=== PATIENT | male | born 1930 | race American Indian/Alaskan Native ===

== ENCOUNTER 2018-08-16 18:09 | Observation (INO) | payer MEDICARE ==
[2018-08-16 18:10] VITALS: BMI 25.7
[2018-08-16] MEDS ORDERED: Sodium Chloride 0.9% 500 ML IV STA (19:09)
--- NOTE | 2018-08-16 19:57 | ED PDOC ---
Arrival/HPI - General Chief Complaint: ENT Problem Time Seen by Provider: 08/16/18 18:38 Historian: Patient - History of Present Illness Narrative History of Present Illness (Text): 08/16/18 19:57 A 88 year old male presents to the emergency department complaining of sore throat, cough, and fever since yesterday. Patient denies any diarrhea, chest pain, shortness of breath, or any other complaints at this time. Past Medical History - Provider Review Nursing Documentation Reviewed: Yes - Infectious Disease Hx of Infectious Diseases: None - Cardiac Hx Hypertension: Yes - Pulmonary Hx Respiratory Disorders: No - Neurological Hx Neurological Disorder: No - HEENT Hx HEENT Disorder: No - Renal Hx Renal Disorder: No - Endocrine/Metabolic Hx Endocrine Disorders: No - Hematological/Oncological Hx Blood Disorders: No - Integumentary Hx Dermatological Disorder: No - Musculoskeletal/Rheumatological Hx Arthritis: Yes - Gastrointestinal Hx Gastrointestinal Disorders: No - Genitourinary/Gynecological Hx Genitourinary Disorders: No - Psychiatric Hx Psychophysiologic Disorder: No Hx Substance Use: No - Anesthesia Hx Anesthesia: No Family/Social History - Physician Review Nursing Documentation Reviewed: Yes Family/Social History: No Known Family HX Smoking Status: Never Smoked Hx Alcohol Use: No Hx Substance Use: No Allergies/Home Meds Allergies/Adverse Reactions: Allergies No Known Allergies Allergy (Verified 07/04/15 01:42) Home Medications: Home Meds Medication Instructions Recorded Confirmed Lisinopril [Zestril] 10 mg PO DAILY 07/04/15 07/04/15 Simvastatin 20 mg PO DAILY 07/04/15 07/04/15 Review of Systems - Physician Review All systems were reviewed & negative as marked: Yes - Review of Systems Constitutional: Fevers ENT: Sore Throat Respiratory: Cough. absent: SOB Cardiovascular: absent: Chest Pain Gastrointestinal: absent: Abdominal Pain, Diarrhea, Vomiting Musculoskeletal: absent: Arthralgias, Back Pain, Neck Pain Skin: absent: Rash, Skin Lesions Neurological: absent: Headache, Dizziness Physical Exam Vital Signs Temp Pulse Resp BP Pulse Ox 08/16/18 18:10 100.9 F H 75 18 132/64 97 Temperature: Afebrile Blood Pressure: Normal Pulse: Regular Respiratory Rate: Normal Appearance: Positive for: Well-Appearing, Non-Toxic, Comfortable Pain Distress: None Mental Status: Positive for: Alert and Oriented X 3 - Systems Exam Head: Present: Atraumatic, Normocephalic Pupils: Present: PERRL Extroacular Muscles: Present: EOMI Conjunctiva: Present: Normal Mouth: Present: Dry Neck: Present: Normal Range of Motion. No: Meningeal Signs, Lymphadenopathy Respiratory/Chest: Present: Clear to Auscultation, Good Air Exchange. No: Respiratory Distress, Accessory Muscle Use Cardiovascular: Present: Regular Rate and Rhythm, Normal S1, S2. No: Murmurs Abdomen: No: Tenderness, Distention, Peritoneal Signs Back: Present: Normal Inspection Upper Extremity: Present: Normal Inspection. No: Cyanosis, Edema Lower Extremity: Present: Normal Inspection. No: Edema Neurological: Present: GCS=15, CN II-XII Intact, Speech Normal Skin: Present: Warm, Dry, Normal Color. No: Rashes Psychiatric: Present: Alert, Oriented x 3, Normal Insight, Normal Concentration Medical Decision Making ED Course and Treatment: Plan : - IV - Labs - Rapid flu - EKG - CXR - Reassess / disposition EKG: SR w/ PVCs at 77 bpm, +new LBBB, compared to last EKG on 07/04/15 which showed LVH with widening of QRS, as read by LILLIAN. CXR : NAD, as read by LILLIAN Labs reviewed : trop (-), rapid flu (-). On reevaluation, patient remains awake alert and oriented 3 in no acute distress, breathing easy and unlabored, he has no new complaints at this time, denies CP or SOB. Diagnostic results d/w the patient and his daughter. Patient states that he feels well and would prefer to go home. Advised that he has new EKG changes and should stay overnight for observation, which he is agrees to. Case d/w Dr. Dover and the medical record librarian, agrees with plan for observation stay. - RAD Interpretation Radiology Orders: 08/16/18 19:08 CHEST PORTABLE [RAD] Stat - Medication Orders Current Medication Orders: Sodium Chloride (Sodium Chloride 0.9%) 500 mls @ 500 mls/hr IV .Q1H STA Stop: 08/16/18 20:08 Last Admin: 08/16/18 19:49 Dose: 500 mls/hr eMAR Start Stop Document 08/16/18 19:49 RC ([facility] 08[facility]16/18 19:50 [id number] Intravenous Solution Start Date 08/16/18 Start Time 19:50 End Date 08/16/18 End time 20:50 Total Infusion Time 60 - PA / SALES SERVICE TECHNICIAN / Resident Statement MD/DO has reviewed & agrees with the documentation as recorded. - Scribe Statement The provider has reviewed the documentation as recorded by the Ashtyn Ferreira Provider Scribe Attestation: All medical record entries made by the Scribe were at my direction and personally dictated by me. I have reviewed the chart and agree that the record accurately reflects my personal performance of the history, physical exam, medical decision making, and the department course for this patient. I have also personally directed, reviewed, and agree with the discharge instructions and disposition. Disposition/Present on Arrival - Present on Arrival Any Indicators Present on Arrival: No History of DVT/PE: No History of Uncontrolled Diabetes: No Urinary Catheter: No History of Decub. Ulcer: No History Surgical Site Infection Following: None - Disposition Have Diagnosis and Disposition been Completed?: Yes Diagnosis: EKG abnormality, Fever Disposition: HOSPITALIZED Disposition Time: 22:00 Patient Plan: Observation (to remote tele) Condition: STABLE
[2018-08-16 19:58] LABS: BASO # 0.01 K/mm3 (0.0-2.0); BASO % 0.1 % (0.0-3.0); EOS % 0.3 % (1.5-5.0); HEMOGLOBIN 11.1 g/dL (14.0-18.0); LYMPH # 1.4 (1.2-3.4); LYMPH % 13.2 % (22.0-35.0); MEAN CELL VOLUME 83.3 fl (80.0-105.0); MEAN CORPUSCULAR HEMOGLOBIN 27.3 pg (25.0-35.0); MEAN CORPUSCULAR HGB CONC 32.8 g/dl (31.0-37.0); MONO # 1.1 (0.1-0.6); MONO % 10.5 % (1.0-6.0); RBC 4.06 10^6/uL (3.5-6.1); RED CELL DISTRIBUTION WIDTH 15.1 % (11.5-14.5); WHITE BLOOD COUNT 10.3 10^3/uL (4.5-11.0)
[2018-08-16 21:26] LABS: ALB/GLOB RATIO 1.3 (1.1-1.8); ALBUMIN 4.2 g/dL (3.0-4.8); ALT/SGPT 10 U/L (7-56); AST/SGOT 18 U/L (17-59); BLOOD UREA NITROGEN 23 mg/dL (7-21); CALCIUM 9.5 mg/dL (8.4-10.5); GFR NON-AFRICAN AMERICAN 48
[2018-08-16 21:36] LABS: TROPONIN I < 0.01 ng/mL
--- NOTE | 2018-08-16 22:54 | CP.PCM.HP ---
<Kendell Tipton - Last Filed: 08/17/18 05:37> History of Present Illness - History of Present Illness History of Present Illness: PGY1 Medicine History and Physical Exam Note for Dr. Dover An 88-year-old M with PMH of HTN, HLD, and arthritis presents to [facility] complaining of sore throat, cough, and fever x2 days. ROS is unremarkable for diarrhea, chest pain, shortness of breath. Patient is a poor historian, thus a complete history could not be obtained at the time of evaluation. PMH: HTN, HLD, arthritis PSH: denies Allergies: NKDA Medications: zestril 10mg po daily, naproxen 500mg po bid, simvastatin 20mg po daily, Family Hx: Unknown Social Hx: Denies tobacco, denies ETOH, denies substance abuse PMD: Dr. Reich Present on Admission - Present on Admission Any Indicators Present on Admission: No History of DVT/PE: No History of Uncontrolled Diabetes: No Urinary Catheter: No Decubitus Ulcer Present: No Review of Systems - Review of Systems Systems not reviewed;Unavailable: Other (Complete ROS could not be obtained due to poor historian ) Past Patient History - Infectious Disease Hx of Infectious Diseases: None - Past Social History Smoking Status: Never Smoked - CARDIAC Hx Hypertension: Yes - PULMONARY Hx Respiratory Disorders: No - NEUROLOGICAL Hx Neurological Disorder: No - HEENT Hx HEENT Problems: No - RENAL Hx Chronic Kidney Disease: No - ENDOCRINE/METABOLIC Hx Endocrine Disorders: No - HEMATOLOGICAL/ONCOLOGICAL Hx Blood Disorders: No - INTEGUMENTARY Hx Dermatological Problems: No - MUSCULOSKELETAL/RHEUMATOLOGICAL Hx Arthritis: Yes - GASTROINTESTINAL Hx Gastrointestinal Disorders: No - GENITOURINARY/GYNECOLOGICAL Hx Genitourinary Disorders: No - PSYCHIATRIC Hx Psychophysiologic Disorder: No Hx Substance Use: No - SURGICAL HISTORY Hx Surgeries: No - ANESTHESIA Hx Anesthesia: No Meds Allergies/Adverse Reactions: Allergies Allergy/AdvReac Type Severity Reaction Status Date / Time No Known Allergies Allergy Verified 07/04/15 01:42 Physical Exam - Constitutional Appears: Non-toxic, No Acute Distress - Head Exam Head Exam: ATRAUMATIC, NORMAL INSPECTION, NORMOCEPHALIC - Eye Exam Eye Exam: EOMI, Normal appearance. absent: Nystagmus Pupil Exam: NORMAL ACCOMODATION - ENT Exam ENT Exam: Mucous Membranes Dry - Neck Exam Neck exam: Positive for: Normal Inspection. Negative for: Tenderness, Thyromegaly - Respiratory Exam Respiratory Exam: Clear to Auscultation Bilateral, NORMAL BREATHING PATTERN. absent: Chest Wall Tenderness, Decreased Breath Sounds, Prolonged Expiratory Phase, Rales, Rhonchi, Wheezes, Respiratory Distress, Stridor - Cardiovascular Exam Cardiovascular Exam: +S1, +S2. absent: Bradycardia, Tachycardia Additional comments: LBBB - GI/Abdominal Exam GI & Abdominal Exam: Normal Bowel Sounds, Soft. absent: Diminished Bowel Sounds, Distended, Firm, Guarding, Hyperactive Bowel Sounds, Mass, Tenderness - Extremities Exam Extremities exam: Positive for: full ROM, normal capillary refill, normal inspection, pedal pulses present. Negative for: calf tenderness, pedal edema, tenderness - Back Exam Back exam: FULL ROM, NORMAL INSPECTION. absent: CVA tenderness (L), CVA tenderness (R) - Neurological Exam Neurological exam: Alert, CN II-XII Intact Additional comments: Patient oriented to self, place, but not to year (answered 1920) - Psychiatric Exam Psychiatric exam: Normal Affect, Normal Mood - Skin Skin Exam: Dry, Intact, Normal Color, Warm Results - Vital Signs Recent Vital Signs: Last Vital Signs Temp 99.4 F 08/16/18 22:17 Pulse 59 L 08/16/18 22:17 Resp 16 08/16/18 22:17 BP 115/58 L 08/16/18 22:17 Pulse Ox 97 08/16/18 22:17 - Labs Result Diagrams: 08/16/18 19:39 08/16/18 19:39 Labs: Laboratory Results - last 24 hr 08/16/18 08/16/18 08/16/18 19:39 19:39 19:39 WBC 10.3 RBC 4.06 Hgb 11.1 L Hct 33.8 L MCV 83.3 MCH 27.3 MCHC 32.8 RDW 15.1 H Plt Count 191 MPV 9.0 Neut % (Auto) 75.9 H Lymph % (Auto) 13.2 L [place] % (Auto) 10.5 H Eos % (Auto) 0.3 L Baso % (Auto) 0.1 Lymph # (Auto) 1.4 [place] # (Auto) 1.1 H Eos # (Auto) 0.0 Baso # (Auto) 0.01 Absolute Neuts (auto) 7.85 H Sodium 138 Potassium 5.0 Chloride 103 Carbon Dioxide 27 Anion Gap 12 BUN 23 H Creatinine 1.4 Est GFR ( Amer) 58 Est GFR (Non-Af Amer) 48 Random Glucose 102 Calcium 9.5 Magnesium 2.3 H Total Bilirubin 0.6 AST 18 ALT 10 Alkaline Phosphatase 54 Lactate Dehydrogenase 411 Total Creatine Kinase 58 Troponin I < 0.01 Total Protein 7.3 Albumin 4.2 Globulin 3.1 Albumin/Globulin Ratio 1.3 Influenza Typ A,B (EIA) Negative for flu a/b Assessment & Plan - Assessment and Plan (Free Text) Assessment: An 88-year-old M with PMH of HTN, HLD, and arthritis presents to [facility] complaining of sore throat, cough, and fever x2 days. ROS is unremarkable for diarrhea, chest pain, shortness of breath. Patient is a poor historian, thus a complete history could not be obtained. Cough, Sore Throat, Fever likely secondary to URI likely viral in etiology - Patient with fever 100.9 - No leukocytosis - F/U Urinalysis - F/U Urine culture - F/U Blood cultures - F/U Sputum cultures - IVF - No antibiotics at this time - CXR: unremarkable for acute disease Abnormal EKG, LBBB - Patient is asymptomatic and not complaining of chest pain - Physical exam is unremarkable - F/U Troponin Q6H x2 - F/U TSH - F/U EKG - Monitor in remote tele Dehydration - CMP consistent with dehydration - BUN=23 - Monitor daily CMP - IVF NS @75cc/hr Ppx: - DVT: ScDs - GI: not indicated Discussed with Dr. Stanislaw Tipton PGY1 <Sam Dover - Last Filed: 08/17/18 06:43> Results - Vital Signs Recent Vital Signs: Last Vital Signs Temp 99.4 F 08/16/18 22:17 Pulse 57 L 08/17/18 05:03 Resp 18 08/17/18 00:10 BP 115/58 L 08/16/18 22:17 Pulse Ox 97 08/16/18 22:17 - Labs Result Diagrams: 08/16/18 19:39 08/16/18 19:39 Labs: Laboratory Results - last 24 hr 08/16/18 08/16/18 08/16/18 19:39 19:39 19:39 WBC 10.3 RBC 4.06 Hgb 11.1 L Hct 33.8 L MCV 83.3 MCH 27.3 MCHC 32.8 RDW 15.1 H Plt Count 191 MPV 9.0 Neut % (Auto) 75.9 H Lymph % (Auto) 13.2 L [place] % (Auto) 10.5 H Eos % (Auto) 0.3 L Baso % (Auto) 0.1 Lymph # (Auto) 1.4 [place] # (Auto) 1.1 H Eos # (Auto) 0.0 Baso # (Auto) 0.01 Absolute Neuts (auto) 7.85 H Sodium 138 Potassium 5.0 Chloride 103 Carbon Dioxide 27 Anion Gap 12 BUN 23 H Creatinine 1.4 Est GFR ( Amer) 58 Est GFR (Non-Af Amer) 48 Random Glucose 102 Calcium 9.5 Magnesium 2.3 H Total Bilirubin 0.6 AST 18 ALT 10 Alkaline Phosphatase 54 Lactate Dehydrogenase 411 Total Creatine Kinase 58 Troponin I < 0.01 Total Protein 7.3 Albumin 4.2 Globulin 3.1 Albumin/Globulin Ratio 1.3 Influenza Typ A,B (EIA) Negative for flu a/b 08/17/18 01:00 WBC RBC Hgb Hct MCV MCH MCHC RDW Plt Count MPV Neut % (Auto) Lymph % (Auto) [place] % (Auto) Eos % (Auto) Baso % (Auto) Lymph # (Auto) [place] # (Auto) Eos # (Auto) Baso # (Auto) Absolute Neuts (auto) Sodium Potassium Chloride Carbon Dioxide Anion Gap BUN Creatinine Est GFR ( Amer) Est GFR (Non-Af Amer) Random Glucose Calcium Magnesium Total Bilirubin AST ALT Alkaline Phosphatase Lactate Dehydrogenase Total Creatine Kinase Troponin I < 0.01 Total Protein Albumin Globulin Albumin/Globulin Ratio Influenza Typ A,B (EIA) Attending/Attestation - Attestation I have personally seen and examined this patient.: Yes I have fully participated in the care of the patient.: Yes I have reviewed all pertinent clinical information: Yes Notes (Text): 08/17/18 06:43 seen and examined. Discussed with resident. A&P as above.
[2018-08-17] MEDS ORDERED: guaiFENesin DM 100 mg-10 mg/5 ml UD PO PRN (00:10)
[2018-08-17] MEDS ORDERED: Sodium Chloride 0.9% 1,000 ML IV SCH (00:15)
[2018-08-17 06:48] VITALS: RESP 20
[2018-08-17] MEDS ORDERED: Arformoterol 15 mcg/2 ml Inh Sol IH SCH ×2 (08:00)
[2018-08-17] MEDS ORDERED: Budesonide 0.5 mg/2 ml Inhal Susp UD IH SCH (08:00)
[2018-08-17 08:05] LABS: BASO # 0.02 K/mm3 (0.0-2.0); BASO % 0.2 % (0.0-3.0); EOS # 0.1 (0.0-0.7); EOS % 1.6 % (1.5-5.0); HEMOGLOBIN 10.3 g/dL (14.0-18.0); LYMPH # 2.4 (1.2-3.4); LYMPH % 29.7 % (22.0-35.0); MEAN CORPUSCULAR HEMOGLOBIN 26.6 pg (25.0-35.0); MEAN CORPUSCULAR HGB CONC 31.7 g/dl (31.0-37.0); MEAN PLATELET VOLUME 9.1 fl (7.0-11.0); MONO # 0.9 (0.1-0.6); MONO % 10.7 % (1.0-6.0); RBC 3.87 10^6/uL (3.5-6.1); RED CELL DISTRIBUTION WIDTH 15.4 % (11.5-14.5); WHITE BLOOD COUNT 8.1 10^3/uL (4.5-11.0)
[2018-08-17 08:12] LABS: INR 1.19; PARTIAL THROMBOPLASTIN TIME 38.7 Seconds (26.9-38.3); PROTHROMBIN TIME 13.5 SECONDS (9.4-12.5)
[2018-08-17 08:19] LABS: ALB/GLOB RATIO 1.2 (1.1-1.8); ALT/SGPT 11 U/L (7-56); AST/SGOT 16 U/L (17-59); BLOOD UREA NITROGEN 20 mg/dL (7-21); CALCIUM 9.1 mg/dL (8.4-10.5); GFR NON-AFRICAN AMERICAN > 60
[2018-08-17 08:41] VITALS: BP 120/56; TEMP 98.6; O2SAT 100
--- NOTE | 2018-08-17 09:08 | RAD ---
Date of service: 08/16/2018 HISTORY: fever COMPARISON: No prior. FINDINGS: LUNGS: No acute pulmonary disease. Volume loss at the left chest is appreciate with elevated left hemidiaphragm. PLEURA: Fibrosis versus small pleural effusion blunts the left costophrenic sulcus. No right pleural effusion. No pneumothorax bilaterally. CARDIOVASCULAR: No aortic atherosclerotic calcification present. Normal cardiac size. No pulmonary vascular congestion. OSSEOUS STRUCTURES: No significant abnormalities. VISUALIZED UPPER ABDOMEN: Elevated left hemidiaphragm. OTHER FINDINGS: None. IMPRESSION: No acute infiltrate bilaterally. Fibrosis versus small pleural effusion blunts the left costophrenic sulcus with the former favored given lack of blunting of the medial costophrenic sulcus. Left hemidiaphragm elevation is appreciate with limited left volume loss as well.
--- NOTE | 2018-08-17 11:29 | CP.PCM.DIS ---
<Kalia Henry - Last Filed: 08/17/18 13:05> Provider - Provider Date of Admission: 08/16/18 22:03 Attending physician: Naye Mays MD Primary care physician: Efren Reich Consults: 08/17/18 00:14 Physician Consult Routine Comment: Consulting Provider: Matt Mckinnon Consulting Physician: Matt Mckinnon Reason for Consult: New LBBB Time Spent in preparation of Discharge (in minutes): 45 Diagnosis - Discharge Diagnosis (1) Viral URI with cough Status: Acute (2) HTN (hypertension) Status: Chronic (3) Hyperlipidemia Status: Chronic (4) Arthritis Status: Chronic (5) EKG abnormality Status: Chronic (6) Fever Status: Resolved Hospital Course - Lab Results Lab Results: Most Recent Lab Values WBC 8.1 10^3/uL (4.5-11.0) D 08/17/18 07:00 RBC 3.87 10^6/uL (3.5-6.1) 08/17/18 07:00 Hgb 10.3 g/dL (14.0-18.0) L 08/17/18 07:00 Hct 32.5 % (42.0-52.0) L 08/17/18 07:00 MCV 84.0 fl (80.0-105.0) 08/17/18 07:00 MCH 26.6 pg (25.0-35.0) 08/17/18 07:00 MCHC 31.7 g/dl (31.0-37.0) 08/17/18 07:00 RDW 15.4 % (11.5-14.5) H 08/17/18 07:00 Plt Count 193 10^3/uL (120.0-450.0) 08/17/18 07:00 MPV 9.1 fl (7.0-11.0) 08/17/18 07:00 Neut % (Auto) 57.8 % (50.0-68.0) 08/17/18 07:00 Lymph % (Auto) 29.7 % (22.0-35.0) 08/17/18 07:00 [place] % (Auto) 10.7 % (1.0-6.0) H 08/17/18 07:00 Eos % (Auto) 1.6 % (1.5-5.0) 08/17/18 07:00 Baso % (Auto) 0.2 % (0.0-3.0) 08/17/18 07:00 Lymph # (Auto) 2.4 (1.2-3.4) 08/17/18 07:00 [place] # (Auto) 0.9 (0.1-0.6) H 08/17/18 07:00 Eos # (Auto) 0.1 (0.0-0.7) 08/17/18 07:00 Baso # (Auto) 0.02 K/mm3 (0.0-2.0) 08/17/18 07:00 Absolute Neuts (auto) 4.69 (1.4-6.5) 08/17/18 07:00 PT 13.5 SECONDS (9.4-12.5) H 08/17/18 07:00 INR 1.19 08/17/18 07:00 APTT 38.7 Seconds (26.9-38.3) H 08/17/18 07:00 Sodium 141 mmol/L (132-148) 08/17/18 07:00 Potassium 4.5 mmol/L (3.6-5.0) 08/17/18 07:00 Chloride 107 mmol/L (98-107) 08/17/18 07:00 Carbon Dioxide 29 mmol/L (21-33) 08/17/18 07:00 Anion Gap 10 (10-20) 08/17/18 07:00 BUN 20 mg/dL (7-21) 08/17/18 07:00 Creatinine 1.1 mg/dl (0.8-1.5) 08/17/18 07:00 Est GFR ( Amer) > 60 08/17/18 07:00 Est GFR (Non-Af Amer) > 60 08/17/18 07:00 Random Glucose 89 mg/dL (70-110) 08/17/18 07:00 Calcium 9.1 mg/dL (8.4-10.5) 08/17/18 07:00 Magnesium 2.3 mg/dL (1.7-2.2) H 08/16/18 19:39 Total Bilirubin 0.5 mg/dL (0.2-1.3) 08/17/18 07:00 AST 16 U/L (17-59) L 08/17/18 07:00 ALT 11 U/L (7-56) 08/17/18 07:00 Alkaline Phosphatase 55 U/L (38-126) 08/17/18 07:00 Lactate Dehydrogenase 411 U/L (333-699) 08/16/18 19:39 Total Creatine Kinase 58 U/L (35-230) 08/16/18 19:39 Troponin I < 0.01 ng/mL 08/17/18 07:00 Total Protein 7.2 g/dL (5.8-8.3) 08/17/18 07:00 Albumin 4.0 g/dL (3.0-4.8) 08/17/18 07:00 Globulin 3.2 gm/dL 08/17/18 07:00 Albumin/Globulin Ratio 1.2 (1.1-1.8) 08/17/18 07:00 Influenza Typ A,B (EIA) Negative for flu a/b (NEGATIVE) 08/16/18 19:39 - Hospital Course Hospital Course: Patient is an 88-year-old male with PMH of HTN, HLD, and arthritis presenting with a cough and dry throat for the past week. He states that he has been coughing intermittently for the past week. He describes his cough to be non- productive most of the time and sometimes producing a clear mucus. Patient got a flu shot last year. He denies smoking. He denies shortness of breath, fevers, chills, or chest pain. In the course of his hospital stay he had an episode of low grade fever. CXR was negative. He is negative for influenza. Antibiotics not indicated at this time as patient most likely has a mild viral URI. EKG showed LBBB, however patient is asymptomatic. Cardiology, Dr. Mckinnon was consulted and recommends that patient follow up with him as outpatient for an echo and stress test. Patient was instructed to take OTC robitussin and cepacol, instructed to follow up with his PMD within 1 week of discharge, follow up with yarn examiner skeins in 1 week for stress test and echo, and was instructed to return to the emergency room for worsening or newly concerning symptoms. Patient is medically stable for discharge. Discharge Exam - Additional Findings Additional findings: - Constitutional Appears: Non-toxic, No Acute Distress - Head Exam Head Exam: ATRAUMATIC, NORMAL INSPECTION, NORMOCEPHALIC - Eye Exam Eye Exam: EOMI, Normal appearance. absent: Nystagmus Pupil Exam: NORMAL ACCOMODATION - ENT Exam ENT Exam: Mucous Membranes Dry - Neck Exam Neck exam: Positive for: Normal Inspection. Negative for: Tenderness, Thyromegaly - Respiratory Exam Respiratory Exam: Clear to Auscultation Bilateral, NORMAL BREATHING PATTERN. absent: Chest Wall Tenderness, Decreased Breath Sounds, Prolonged Expiratory Phase, Rales, Rhonchi, Wheezes, Respiratory Distress, Stridor - Cardiovascular Exam Cardiovascular Exam: +S1, +S2. absent: Bradycardia, Tachycardia Additional comments: LBBB - GI/Abdominal Exam GI & Abdominal Exam: Normal Bowel Sounds, Soft. absent: Diminished Bowel Sounds, Distended, Firm, Guarding, Hyperactive Bowel Sounds, Mass, Tenderness - Extremities Exam Extremities exam: Positive for: full ROM, normal capillary refill, normal inspection, pedal pulses present. Negative for: calf tenderness, pedal edema, tenderness - Back Exam Back exam: FULL ROM, NORMAL INSPECTION. absent: CVA tenderness (L), CVA tenderness (R) - Neurological Exam Neurological exam: Alert, CN II-XII Intact - Psychiatric Exam Psychiatric exam: Normal Affect, Normal Mood - Skin Skin Exam: Dry, Intact, Normal Color, Warm Discharge Plan - Follow Up Plan Condition: STABLE Disposition: HOME/ ROUTINE Instructions: Ambulatory Cardiac Monitoring (DC), Fever, Adult (DC), When to Worry About a Fever, Hypertension (DC) Additional Instructions: 1. Take [id number]-abs-hyoahky Robitussin for cough and Cepacol lozenges for sore/dry throat. Please follow dose instructions on the box. 2. Follow up with your primary care doctor within 1 week of discharge. Discuss with your doctor if your cough persists. It may be caused from side effects of your medication (Lisinopril). 3. Follow up with the yarn examiner skeins, Dr. Mckinnon in his office in 1 week for an echocardiogram and stress test. 4. Return to the emergency room for worsening or newly concerning symptoms. Referrals: Efren Reich MD [Primary Care Provider] - Matt Mckinnon MD [Staff Provider] - <Matt Johnson - Last Filed: 08/17/18 13:18> Provider - Provider Date of Admission: 08/16/18 22:03 Attending physician: Naye Mays MD Primary care physician: Efren Reich Consults: 08/17/18 00:14 Physician Consult Routine Comment: Consulting Provider: Matt Mckinnon Consulting Physician: Matt Mckinnon Reason for Consult: [place] [facility] Course - Lab Results Lab Results: Most Recent Lab Values WBC 8.1 10^3/uL (4.5-11.0) D 08/17/18 07:00 RBC 3.87 10^6/uL (3.5-6.1) 08/17/18 07:00 Hgb 10.3 g/dL (14.0-18.0) L 08/17/18 07:00 Hct 32.5 % (42.0-52.0) L 08/17/18 07:00 MCV 84.0 fl (80.0-105.0) 08/17/18 07:00 MCH 26.6 pg (25.0-35.0) 08/17/18 07:00 MCHC 31.7 g/dl (31.0-37.0) 08/17/18 07:00 RDW 15.4 % (11.5-14.5) H 08/17/18 07:00 Plt Count 193 10^3/uL (120.0-450.0) 08/17/18 07:00 MPV 9.1 fl (7.0-11.0) 08/17/18 07:00 Neut % (Auto) 57.8 % (50.0-68.0) 08/17/18 07:00 Lymph % (Auto) 29.7 % (22.0-35.0) 08/17/18 07:00 [place] % (Auto) 10.7 % (1.0-6.0) H 08/17/18 07:00 Eos % (Auto) 1.6 % (1.5-5.0) 08/17/18 07:00 Baso % (Auto) 0.2 % (0.0-3.0) 08/17/18 07:00 Lymph # (Auto) 2.4 (1.2-3.4) 08/17/18 07:00 [place] # (Auto) 0.9 (0.1-0.6) H 08/17/18 07:00 Eos # (Auto) 0.1 (0.0-0.7) 08/17/18 07:00 Baso # (Auto) 0.02 K/mm3 (0.0-2.0) 08/17/18 07:00 Absolute Neuts (auto) 4.69 (1.4-6.5) 08/17/18 07:00 PT 13.5 SECONDS (9.4-12.5) H 08/17/18 07:00 INR 1.19 08/17/18 07:00 APTT 38.7 Seconds (26.9-38.3) H 08/17/18 07:00 Sodium 141 mmol/L (132-148) 08/17/18 07:00 Potassium 4.5 mmol/L (3.6-5.0) 08/17/18 07:00 Chloride 107 mmol/L (98-107) 08/17/18 07:00 Carbon Dioxide 29 mmol/L (21-33) 08/17/18 07:00 Anion Gap 10 (10-20) 08/17/18 07:00 BUN 20 mg/dL (7-21) 08/17/18 07:00 Creatinine 1.1 mg/dl (0.8-1.5) 08/17/18 07:00 Est GFR ( Amer) > 60 08/17/18 07:00 Est GFR (Non-Af Amer) > 60 08/17/18 07:00 Random Glucose 89 mg/dL (70-110) 08/17/18 07:00 Calcium 9.1 mg/dL (8.4-10.5) 08/17/18 07:00 Magnesium 2.3 mg/dL (1.7-2.2) H 08/16/18 19:39 Total Bilirubin 0.5 mg/dL (0.2-1.3) 08/17/18 07:00 AST 16 U/L (17-59) L 08/17/18 07:00 ALT 11 U/L (7-56) 08/17/18 07:00 Alkaline Phosphatase 55 U/L (38-126) 08/17/18 07:00 Lactate Dehydrogenase 411 U/L (333-699) 08/16/18 19:39 Total Creatine Kinase 58 U/L (35-230) 08/16/18 19:39 Troponin I < 0.01 ng/mL 08/17/18 07:00 Total Protein 7.2 g/dL (5.8-8.3) 08/17/18 07:00 Albumin 4.0 g/dL (3.0-4.8) 08/17/18 07:00 Globulin 3.2 gm/dL 08/17/18 07:00 Albumin/Globulin Ratio 1.2 (1.1-1.8) 08/17/18 07:00 Influenza Typ A,B (EIA) Negative for flu a/b (NEGATIVE) 08/16/18 19:39 Attending/Attestation - Attestation I have personally seen and examined this patient.: Yes I have fully participated in the care of the patient.: Yes I have reviewed all pertinent clinical information, including history, physical exam and plan: Yes Notes (Text): 08/17/18 13:18 Medical record note made by the resident after discussion with my direction and input after the patient was personally seen and examined by me. I have reviewed the chart and agree that the record accurately reflects by personal performance of the history, physical exam, data review, and medical decision-making, in the course for the patient. I have also personally directed the plan of care. 88 year old male with PMH of hypertension, hyperlipidemia and arthritis who came in to the ER due to sore throat and cough with fever for the past 2 days. Patient is afebrile .Cough is dry.X ray chest was negative for Pneumonia. Influenza scree is negative. 12 lead EKG showed normal sinus rhythm with left bundle branch block. Denies chest pain or shortness of breath. . Troponin normal x 3 (0.01). Patient was evaluated by cardiology and Out patient Echo and stress test is recommended. Patient is feeling at his base line.He is ambulatory.He will be discharged home and will follow up with PCP and Cardiology.
--- NOTE | 2018-08-17 12:06 | CP.PCM.CON ---
<Kelly Jeffries - Last Filed: 08/17/18 12:28> History of Present Illness - History of Present Illness History of Present Illness: Awake, alert, no distress, denies chest pain Reason for consultation: Cardiac evaluation of new onset left bundle branch block on EKG, denies chest pain,denies shortness of breath Brief history of present illness:an 88 year old male who came in to the ER due to sore throat and cough with fever for the past 2 days. Patient is poor historian. History of hypertension, hyperlipidemia and arthritis. 12 lead EKG showed normal sinus rhythm with left bundle branch block. Denies chest pain or shortness of breath. Seen and examined by me and Dr. Mckinnon Review of Systems - Review of Systems All systems: reviewed and no additional remarkable complaints except Review of Systems: as per HPI Past Patient History - Infectious Disease Hx of Infectious Diseases: None - Past Social History Smoking Status: Never Smoked - CARDIAC Hx Hypertension: Yes - PULMONARY Hx Respiratory Disorders: No - NEUROLOGICAL Hx Neurological Disorder: No - HEENT Hx HEENT Problems: No - RENAL Hx Chronic Kidney Disease: No - ENDOCRINE/METABOLIC Hx Endocrine Disorders: No - HEMATOLOGICAL/ONCOLOGICAL Hx Blood Disorders: No - INTEGUMENTARY Hx Dermatological Problems: No - MUSCULOSKELETAL/RHEUMATOLOGICAL Hx Arthritis: Yes - GASTROINTESTINAL Hx Gastrointestinal Disorders: No - GENITOURINARY/GYNECOLOGICAL Hx Genitourinary Disorders: No - PSYCHIATRIC Hx Psychophysiologic Disorder: No Hx Substance Use: No - SURGICAL HISTORY Hx Surgeries: No - ANESTHESIA Hx Anesthesia: No Meds Allergies/Adverse Reactions: Allergies Allergy/AdvReac Type Severity Reaction Status Date / Time No Known Allergies Allergy Verified 07/04/15 01:42 - Medications Medications: Current Medications Acetaminophen (Tylenol 325mg Tab) 650 mg PO Q6H PRN PRN Reason: Fever >100.4 F Arformoterol Tartrate (Brovana) 15 mcg IH [id number] [facility] Last Admin: 08/17/18 08:36 Dose: 15 mcg Aspirin (Aspirin Chewable) 81 mg PO DAILY [facility] Last Admin: 08/17/18 10:08 Dose: 81 mg Atorvastatin Calcium (Lipitor) 10 mg PO DIN [facility] Last Admin: 08/17/18 00:35 Dose: 10 mg Budesonide (Pulmicort Respules) 0.5 mg IH [id number] [facility] Last Admin: 08/17/18 08:36 Dose: 0.5 mg Guaifenesin/Dextromethorphan (Robitussin Dm) 5 ml PO Q4H PRN PRN Reason: Cough Sodium Chloride (Sodium Chloride 0.9%) 1,000 mls @ 75 mls/hr IV .[id number] [facility] Last Admin: 08/17/18 00:35 Dose: 75 mls/hr Physical Exam - Constitutional Appears: Non-toxic, No Acute Distress - Head Exam Head Exam: NORMAL INSPECTION, NORMOCEPHALIC - Eye Exam Eye Exam: Normal appearance Pupil Exam: NORMAL ACCOMODATION - ENT Exam ENT Exam: Mucous Membranes Moist, Normal Exam Additional comments: sore throat - Respiratory Exam Respiratory Exam: Decreased Breath Sounds, Clear to Auscultation Bilateral, NORMAL BREATHING PATTERN Additional comments: intermittent cough - Cardiovascular Exam Cardiovascular Exam: REGULAR RHYTHM, +S1, +S2 - GI/Abdominal Exam GI & Abdominal Exam: Normal Bowel Sounds, Soft - Extremities Exam Extremities exam: Positive for: full ROM, normal capillary refill - Neurological Exam Neurological exam: Alert, Oriented x3 - Psychiatric Exam Psychiatric exam: Normal Affect, Normal Mood - Skin Skin Exam: Dry, Normal Color, Warm Results - Vital Signs Recent Vital Signs: Last Vital Signs Temp 98.6 F 08/17/18 08:40 Pulse 60 08/17/18 08:40 Resp 20 08/17/18 08:40 BP 120/56 L 08/17/18 08:40 Pulse Ox 100 08/17/18 08:40 - Labs Result Diagrams: 08/17/18 07:00 08/17/18 07:00 Labs: Laboratory Results - last 24 hr 08/16/18 08/16/18 08/16/18 19:39 19:39 19:39 WBC 10.3 RBC 4.06 Hgb 11.1 L Hct 33.8 L MCV 83.3 MCH 27.3 MCHC 32.8 RDW 15.1 H Plt Count 191 MPV 9.0 Neut % (Auto) 75.9 H Lymph % (Auto) 13.2 L [place] % (Auto) 10.5 H Eos % (Auto) 0.3 L Baso % (Auto) 0.1 Lymph # (Auto) 1.4 [place] # (Auto) 1.1 H Eos # (Auto) 0.0 Baso # (Auto) 0.01 Absolute Neuts (auto) 7.85 H PT INR APTT Sodium 138 Potassium 5.0 Chloride 103 Carbon Dioxide 27 Anion Gap 12 BUN 23 H Creatinine 1.4 Est GFR ( Amer) 58 Est GFR (Non-Af Amer) 48 Random Glucose 102 Calcium 9.5 Magnesium 2.3 H Total Bilirubin 0.6 AST 18 ALT 10 Alkaline Phosphatase 54 Lactate Dehydrogenase 411 Total Creatine Kinase 58 Troponin I < 0.01 Total Protein 7.3 Albumin 4.2 Globulin 3.1 Albumin/Globulin Ratio 1.3 Influenza Typ A,B (EIA) Negative for flu a/b 08/17/18 08/17/18 08/17/18 01:00 07:00 07:00 WBC 8.1 D RBC 3.87 Hgb 10.3 L Hct 32.5 L MCV 84.0 MCH 26.6 MCHC 31.7 RDW 15.4 H Plt Count 193 MPV 9.1 Neut % (Auto) 57.8 Lymph % (Auto) 29.7 [place] % (Auto) 10.7 H Eos % (Auto) 1.6 Baso % (Auto) 0.2 Lymph # (Auto) 2.4 [place] # (Auto) 0.9 H Eos # (Auto) 0.1 Baso # (Auto) 0.02 Absolute Neuts (auto) 4.69 PT 13.5 H INR 1.19 APTT 38.7 H Sodium Potassium Chloride Carbon Dioxide Anion Gap BUN Creatinine Est GFR ( Amer) Est GFR (Non-Af Amer) Random Glucose Calcium Magnesium Total Bilirubin AST ALT Alkaline Phosphatase Lactate Dehydrogenase Total Creatine Kinase Troponin I < 0.01 Total Protein Albumin Globulin Albumin/Globulin Ratio Influenza Typ A,B (EIA) 08/17/18 08/17/18 07:00 07:00 WBC RBC Hgb Hct MCV MCH MCHC RDW Plt Count MPV Neut % (Auto) Lymph % (Auto) [place] % (Auto) Eos % (Auto) Baso % (Auto) Lymph # (Auto) [place] # (Auto) Eos # (Auto) Baso # (Auto) Absolute Neuts (auto) PT INR APTT Sodium 141 Potassium 4.5 Chloride 107 Carbon Dioxide 29 Anion Gap 10 BUN 20 Creatinine 1.1 Est GFR ( Amer) > 60 Est GFR (Non-Af Amer) > 60 Random Glucose 89 Calcium 9.1 Magnesium Total Bilirubin 0.5 AST 16 L ALT 11 Alkaline Phosphatase 55 Lactate Dehydrogenase Total Creatine Kinase Troponin I < 0.01 Total Protein 7.2 Albumin 4.0 Globulin 3.2 Albumin/Globulin Ratio 1.2 Influenza Typ A,B (EIA) Assessment & Plan - Assessment and Plan (Free Text) Assessment: An 88 year old male who came in to the ER due to sore throat and cough with fever for the past 2 days. Patient is poor historian. History of hypertension, hyperlipidemia and arthritis. 12 lead EKG showed normal sinus rhythm with left bundle branch block. Denies chest pain or shortness of breath. Chest X ray showed no infiltrates. Troponin normal x 3 (0.01). Medical treatment ,no evidence of congestive heart failure or acute coronary syndrome. Out patient Echo and stress test. Plan: Denies chest pain or shortness of breath Heart rate controlled Blood pressure controlled On ASA 81 mg daily, Lipitor 10 mg daily Cephacol for sore throat Robitussin for cough PRN Continue current treatment Continue current medications Strest test and Echo as out patient procedure Will follow up Plan and treatment discussed with Dr. Mckinnon Thank you Dr. Mays for the opportunity of taking care Raj Fish Sr. - Date & Time Date: 08/17/18 Time: 07:00 <Matt Johnson - Last Filed: 08/17/18 13:17> Meds - Medications Medications: Current Medications Acetaminophen (Tylenol 325mg Tab) 650 mg PO Q6H PRN PRN Reason: Fever >100.4 F Arformoterol Tartrate (Brovana) 15 mcg IH [id number] [facility] Last Admin: 08/17/18 08:36 Dose: 15 mcg Aspirin (Aspirin Chewable) 81 mg PO DAILY [facility] Last Admin: 08/17/18 10:08 Dose: 81 mg Atorvastatin Calcium (Lipitor) 10 mg PO DIN [facility] Last Admin: 08/17/18 00:35 Dose: 10 mg Budesonide (Pulmicort Respules) 0.5 mg IH [id number] [facility] Last Admin: 08/17/18 08:36 Dose: 0.5 mg Guaifenesin/Dextromethorphan (Robitussin Dm) 5 ml PO Q4H PRN PRN Reason: Cough Sodium Chloride (Sodium Chloride 0.9%) 1,000 mls @ 75 mls/hr IV .[id number] [facility] Last Admin: 08/17/18 00:35 Dose: 75 mls/hr Results - Vital Signs Recent Vital Signs: Last Vital Signs Temp 98.6 F 08/17/18 08:40 Pulse 68 08/17/18 10:00 Resp 20 08/17/18 08:40 BP 120/56 L 08/17/18 08:40 Pulse Ox 100 08/17/18 08:40 - Labs Result Diagrams: 08/17/18 07:00 08/17/18 07:00 Labs: Laboratory Results - last 24 hr 08/16/18 08/16/18 08/16/18 19:39 19:39 19:39 WBC 10.3 RBC 4.06 Hgb 11.1 L Hct 33.8 L MCV 83.3 MCH 27.3 MCHC 32.8 RDW 15.1 H Plt Count 191 MPV 9.0 Neut % (Auto) 75.9 H Lymph % (Auto) 13.2 L [place] % (Auto) 10.5 H Eos % (Auto) 0.3 L Baso % (Auto) 0.1 Lymph # (Auto) 1.4 [place] # (Auto) 1.1 H Eos # (Auto) 0.0 Baso # (Auto) 0.01 Absolute Neuts (auto) 7.85 H PT INR APTT Sodium 138 Potassium 5.0 Chloride 103 Carbon Dioxide 27 Anion Gap 12 BUN 23 H Creatinine 1.4 Est GFR ( Amer) 58 Est GFR (Non-Af Amer) 48 Random Glucose 102 Calcium 9.5 Magnesium 2.3 H Total Bilirubin 0.6 AST 18 ALT 10 Alkaline Phosphatase 54 Lactate Dehydrogenase 411 Total Creatine Kinase 58 Troponin I < 0.01 Total Protein 7.3 Albumin 4.2 Globulin 3.1 Albumin/Globulin Ratio 1.3 Influenza Typ A,B (EIA) Negative for flu a/b 08/17/18 08/17/18 08/17/18 01:00 07:00 07:00 WBC 8.1 D RBC 3.87 Hgb 10.3 L Hct 32.5 L MCV 84.0 MCH 26.6 MCHC 31.7 RDW 15.4 H Plt Count 193 MPV 9.1 Neut % (Auto) 57.8 Lymph % (Auto) 29.7 [place] % (Auto) 10.7 H Eos % (Auto) 1.6 Baso % (Auto) 0.2 Lymph # (Auto) 2.4 [place] # (Auto) 0.9 H Eos # (Auto) 0.1 Baso # (Auto) 0.02 Absolute Neuts (auto) 4.69 PT 13.5 H INR 1.19 APTT 38.7 H Sodium Potassium Chloride Carbon Dioxide Anion Gap BUN Creatinine Est GFR ( Amer) Est GFR (Non-Af Amer) Random Glucose Calcium Magnesium Total Bilirubin AST ALT Alkaline Phosphatase Lactate Dehydrogenase Total Creatine Kinase Troponin I < 0.01 Total Protein Albumin Globulin Albumin/Globulin Ratio Influenza Typ A,B (EIA) 08/17/18 08/17/18 07:00 07:00 WBC RBC Hgb Hct MCV MCH MCHC RDW Plt Count MPV Neut % (Auto) Lymph % (Auto) [place] % (Auto) Eos % (Auto) Baso % (Auto) Lymph # (Auto) [place] # (Auto) Eos # (Auto) Baso # (Auto) Absolute Neuts (auto) PT INR APTT Sodium 141 Potassium 4.5 Chloride 107 Carbon Dioxide 29 Anion Gap 10 BUN 20 Creatinine 1.1 Est GFR ( Amer) > 60 Est GFR (Non-Af Amer) > 60 Random Glucose 89 Calcium 9.1 Magnesium Total Bilirubin 0.5 AST 16 L ALT 11 Alkaline Phosphatase 55 Lactate Dehydrogenase Total Creatine Kinase Troponin I < 0.01 Total Protein 7.2 Albumin 4.0 Globulin 3.2 Albumin/Globulin Ratio 1.2 Influenza Typ A,B (EIA) Attending/Attestation - Attestation I have personally seen and examined this patient.: Yes I have fully participated in the care of the patient.: Yes I have reviewed all pertinent clinical information: Yes Notes (Text): 08/17/18 13:13 Medical record note made by the resident after discussion with my direction and input after the patient was personally seen and examined by me. I have reviewed the chart and agree that the record accurately reflects by personal performance of the history, physical exam, data review, and medical decision-making, in the course for the patient. I have also personally directed the plan of care. 88 year old male with PMH of hypertension, hyperlipidemia and arthritis who came in to the ER due to sore throat and cough with fever for the past 2 days. Patient is afebrile .Cough is dry.X ray chest was negative for Pneumonia. Influenza scree is negative. 12 lead EKG showed normal sinus rhythm with left bundle branch block. Denies chest pain or shortness of breath. . Troponin normal x 3 (0.01). Patient was evaluated by cardiology and Out patient Echo and stress test is recommended. Patient is feeling at his base line.He is ambulatory.He will be discharged home and will follow up with PCP and Cardiology.
[2018-08-17 12:21] VITALS: PULSE 68
--- NOTE | 2018-08-17 19:51 | CARD ---
APPROVED REPORT Date of service: 08/16/2018 EKG Measurement Heart [id number] <Conclusion> Sinus rhythm with premature ventricular complexes or fusion complexes Left bundle branch block Abnormal ECG
--- NOTE | 2018-08-17 22:42 | CARD ---
APPROVED REPORT Date of service: 08/17/2018 EKG Measurement Heart [id number] <Conclusion> Normal sinus rhythm with sinus arrhythmia Left bundle branch block Abnormal ECG
== END 2018-08-17 13:53 | disposition home or self-care (01) ==
LOC: ED 18:09 → ERH 22:03 → 3RNO 08-17 00:15
PROVIDERS: ADMIT Internal Medicine; ATTEND Internal Medicine
DX: J06.9 Acute upper respiratory infection, unspecified (principal); I44.7 Left bundle-branch block, unspecified; I10 Essential (primary) hypertension; E78.5 Hyperlipidemia, unspecified; M19.90 Unspecified osteoarthritis, unspecified site; E86.0 Dehydration; R50.9 Fever, unspecified
CPT/HCPCS: 36415; 71045; 80053; 82550; 83615; 83735; 84484; 85025; 85610; 85730; 87040; 87804; 93005; 94640; 96360; 99285; G0378; J7030